=== PATIENT | male | born 1955 ===

== ENCOUNTER 2020-12-27 14:05 | Outpatient (CLI) | payer MEDICARE | END 2020-12-27 23:59 | disposition home or self-care (01) | LOC: RAD 14:05 | PROVIDERS: ATTEND Internal Medicine Hematology & Oncology | DX: C34.90 Malignant neoplasm of unspecified part of unspecified bronchus or lung (principal); I82.210 Acute embolism and thrombosis of superior vena cava | CPT/HCPCS: 36573; C1751 ==